=== PATIENT | male | born 1980 | race Caucasian/White ===

== ENCOUNTER 2016-06-26 14:16 | Emergency (ER) | payer SELFPAY ==
[~2016-06-26] VITALS: Ht 170.2 cm; Wt 88.2 kg
[2016-06-26 14:34] VITALS: BP 140/97
== END 2016-06-26 17:22 | disposition left against medical advice (07) ==
LOC: EDUNIT# 14:16 → EMS 14:19
DX: F10.10 Alcohol abuse, uncomplicated (principal); F11.10 Opioid abuse, uncomplicated; F17.210 Nicotine dependence, cigarettes, uncomplicated
CPT/HCPCS: 99283

== ENCOUNTER 2016-12-11 12:24 | Emergency (ER) | payer SELFPAY ==
[~2016-12-11] VITALS: Ht 170.2 cm; Wt 81.8 kg
[2016-12-11] MEDS ORDERED: SULFAMETHOX/TRIMETH DS 800-160 MG/TABLET PO ONE (13:00)
[2016-12-11] MEDS ORDERED: CEPHALEXIN MONOHYDRATE 500 MG CAPSULE PO ONE (13:00)
[2016-12-11 14:39] VITALS: BP 113/64
== END 2016-12-11 14:41 | disposition home or self-care (01) ==
LOC: EMS 12:25
DX: L02.31 Cutaneous abscess of buttock (principal); F11.90 Opioid use, unspecified, uncomplicated; F15.90 Other stimulant use, unspecified, uncomplicated; F17.210 Nicotine dependence, cigarettes, uncomplicated
CPT/HCPCS: 99283

== ENCOUNTER 2016-12-16 09:35 | Emergency (ER) | payer OTHER ==
[~2016-12-16] VITALS: Ht 170.2 cm; Wt 81.8 kg
[2016-12-16] MEDS ORDERED: SODIUM CHLORIDE 0.9% 1,000 ML IV ONE (11:11)
[2016-12-16] MEDS ORDERED: ONDANSETRON HCL 4 MG/2 ML VIAL IVP ONE (11:15)
[2016-12-16] MEDS ORDERED: MAGNESIUM SULFATE 2 GM, MVI, ADULT NO.1 WITH VIT K 10 ML, THIAMINE HCL 100 MG, FOLIC AC... IV ONE ×5 (11:15)
[2016-12-16 11:28] LABS: BASOPHILS % (AUTO) 0.1 % (0.0-2.0); EOSINOPHILS % (AUTO) 0 % (1.0-6.0); HEMATOCRIT 42.7 % (41-53); HEMOGLOBIN 14.9 g/dL (13.5-17.5); LYMPHOCYTES # (AUTO) 0.5 K/uL (1.0-4.8); LYMPHOCYTES % (AUTO) 6.4 % (22.0-44.0); MEAN CORPUSCULAR HEMOGLOBIN 29.9 pg (26.0-34.0); MEAN CORPUSCULAR HGB CONC 34.9 G/dL (31.0-37.0); MEAN CORPUSCULAR VOLUME 86 fL (80-100); MONOCYTES # (AUTO) 0.4 K/uL (0.1-1.0); MONOCYTES % (AUTO) 4.9 % (2.0-9.0); PLATELET COUNT (AUTO) 142 K/uL (150-450); RED BLOOD CELL COUNT(AUTO) 4.97 MIL/uL (4.50-5.90); WHITE BLOOD COUNT (AUTO) 7.9 K/uL (4.5-11.0)
[2016-12-16 11:30] LABS: APPEARANCE,URINE CLEAR (CLEAR); GLUCOSE, URINE (UA) NEGATIVE (NEGATIVE); KETONES,URINE >=80 mg/dL (NEGATIVE); LEUKOCYTE ESTERASE ,URINE NEGATIVE (NEGATIVE); OCCULT BLOOD,URINE NEGATIVE (NEGATIVE); PH,URINE 7.5 (5.0-8.0); PROTEIN,URINE SEE CONFIRM (NEGATIVE)
[2016-12-16 11:30] LABS: NEUTROPHILS % (AUTO) 88.6 % (40.0-70.0)
[2016-12-16] MEDS ORDERED: LORazepam 2 MG/ML VIAL IVP ONE (11:30)
[2016-12-16 11:32] LABS: ADD UA MICROSCOPIC YES
[2016-12-16 11:45] LABS: ANION GAP 16 mmol/L (8-16); CALCIUM, TOTAL 9.6 mg/dL (8.8-10.5); CARBON DIOXIDE 23 mmol/L (22-29); CHLORIDE 98 mmol/L (98-107); CREATININE 0.72 mg/dL (0.60-1.30); GLOMERULAR FILTR. RATE CALC > 60 mL/min (>60); POTASSIUM 3.7 mmol/L (3.5-5.1); SODIUM SERUM 137 mmol/L (136-145); UREA NITROGEN, BLOOD 10 mg/dL (7-18)
[2016-12-16 11:51] LABS: ALANINE AMINOTRANSFERASE 47 U/L (12-78); ALBUMIN 4.1 g/dL (3.4-5.0); ASPARTATE AMINOTRANSFERASE 51 U/L (15-37); BILIRUBIN,TOTAL 1.5 mg/dL (0.1-1.0)
[2016-12-16 11:53] LABS: SULFOSALICYLIC ACID,URINE 2+ (Negative)
[2016-12-16 11:55] LABS: RBC,URINE None Seen /HPF (0-2); SQUAMOUS EPITHELIAL CELL,UR Few /LPF (None Seen); WBC,URINE None Seen /HPF (0-5)
[2016-12-16] MEDS ORDERED: ChlordiazePOXIDE HCL 25 MG CAPSULE PO ONE (13:00)
[2016-12-16 13:34] VITALS: BP 130/81
== END 2016-12-16 13:37 | disposition home or self-care (01) ==
LOC: EMS 09:36
DX: F10.239 Alcohol dependence with withdrawal, unspecified (principal); F17.210 Nicotine dependence, cigarettes, uncomplicated; F41.9 Anxiety disorder, unspecified
CPT/HCPCS: 36415; 80053; 80307; 81001; 83690; 85025; 96361; 96374; 96375; 99284; 99406; G0480; J2060; J2405; J3411; J3475; J3490 ×2; J7030

== ENCOUNTER 2017-01-06 12:43 | Emergency (ER) | payer OTHER ==
[~2017-01-06] VITALS: Ht 170.2 cm; Wt 81.5 kg
[2017-01-06] MEDS ORDERED: antibiotic PO (13:24)
[2017-01-06] MEDS ORDERED: OXYC10 PO (13:24)
[2017-01-06 13:36] VITALS: BP 117/73
== END 2017-01-06 14:02 | disposition home or self-care (01) ==
LOC: EMS 12:45
DX: F19.20 Other psychoactive substance dependence, uncomplicated (principal); Z02.89 Encounter for other administrative examinations; F17.210 Nicotine dependence, cigarettes, uncomplicated
CPT/HCPCS: 99281

== ENCOUNTER 2017-10-19 11:41 | Emergency (ER) | payer SELFPAY ==
[~2017-10-19] VITALS: Ht 170.2 cm; Wt 90.9 kg
[~2017-10-19 11:41] MED LIST: OXYC10 PO; antibiotic PO
[2017-10-19 11:42] VITALS: BP 142/99
== END 2017-10-19 12:19 | disposition left against medical advice (07) ==
LOC: EMS 11:43
DX: Z02.89 Encounter for other administrative examinations (principal); Z53.21 Procedure and treatment not carried out due to patient leaving prior to being seen by health care provider

== ENCOUNTER 2024-02-29 14:26 | Emergency (ER) | payer SELFPAY ==
[~2024-02-29] VITALS: Ht 170.2 cm; Wt 75.0 kg
[~2024-02-29 14:26] MED LIST changes: -OXYC10 PO; +OXYC10TA59 PO
[2024-02-29 14:42] VITALS: TEMP 98.6
[2024-02-29] MEDS ORDERED: METH5SOL20 PO (14:45)
[2024-02-29 16:00] VITALS: BP 125/89; PULSE 98; RESP 18; O2SAT 98
[2024-02-29] MEDS ORDERED: METH10 PO (16:02)
[2024-02-29] MEDS ORDERED: EMPA10TA3 PO (16:02)
[2024-02-29] MEDS ORDERED: OXYC20TA41 PO (16:02)
[2024-02-29] MEDS ORDERED: MIDO5TAB5 PO (16:02)
[2024-02-29] MEDS: OxyCODONE HCL 10 MG IR TABLET PO ONE (16:33)
== END 2024-02-29 16:59 | disposition home or self-care (01) ==
LOC: EMS 14:26
DX: Z76.0 Encounter for issue of repeat prescription (principal); F10.20 Alcohol dependence, uncomplicated; F12.90 Cannabis use, unspecified, uncomplicated; F15.90 Other stimulant use, unspecified, uncomplicated; F14.90 Cocaine use, unspecified, uncomplicated; Z98.890 Other specified postprocedural states
CPT/HCPCS: 99283

== ENCOUNTER 2024-03-07 15:03 | Emergency (ER) | payer MEDICARE, MEDICAID ==
[~2024-03-07] VITALS: Ht 170.2 cm; Wt 72.7 kg
[~2024-03-07 15:03] MED LIST changes: +EMPA10TA3 PO; +METH10 PO; +METH5SOL20 PO; +MIDO5TAB5 PO; -OXYC10TA59 PO; +OXYC20TA41 PO; -antibiotic PO
[2024-03-07 15:07] VITALS: TEMP 98.2
[2024-03-07] MEDS: OxyCODONE HCL 10 MG IR TABLET PO ONE (17:14)
[2024-03-07 17:32] VITALS: BP 142/86; PULSE 87; RESP 18; O2SAT 99
== END 2024-03-07 18:35 | disposition home or self-care (01) ==
LOC: EMS 15:03
DX: G62.9 Polyneuropathy, unspecified (principal); Z76.0 Encounter for issue of repeat prescription; F12.90 Cannabis use, unspecified, uncomplicated; F10.20 Alcohol dependence, uncomplicated; F17.210 Nicotine dependence, cigarettes, uncomplicated; F15.90 Other stimulant use, unspecified, uncomplicated; F14.90 Cocaine use, unspecified, uncomplicated; Z98.890 Other specified postprocedural states; Y90.9 Presence of alcohol in blood, level not specified
CPT/HCPCS: 99283

== ENCOUNTER 2025-03-05 21:33 | Emergency (ER) | payer MEDICARE, OTHER ==
[~2025-03-05] VITALS: Ht 165.1 cm; Wt 75.0 kg
[~2025-03-05 21:33] MED LIST changes: -METH10 PO
[2025-03-05 21:36] VITALS: TEMP 97.7
[2025-03-05] MEDS: OxyCODONE HCL 5 MG IR TABLET PO ONE (23:10)
[2025-03-05] MEDS ORDERED: OXYC10TA92 PO (23:23)
[2025-03-06 00:53] VITALS: BP 132/81; PULSE 89; RESP 16; O2SAT 99
== END 2025-03-06 01:11 | disposition home or self-care (01) ==
LOC: EMS 21:33
DX: G89.29 Other chronic pain (principal); M79.18 Myalgia, other site; Z76.0 Encounter for issue of repeat prescription; F12.90 Cannabis use, unspecified, uncomplicated; F10.20 Alcohol dependence, uncomplicated; Y90.9 Presence of alcohol in blood, level not specified
CPT/HCPCS: 99283